=== PATIENT | female | born 2000 | race Caucasian/White ===

== ENCOUNTER 2020-05-02 16:04 | Emergency (ER) | payer OTHER, BC ==
[2020-05-02 16:30] VITALS: BP 141/70; PULSE 74; TEMP 97.4; BMI 21.0
[2020-05-02 21:18] LABS: THROAT:GRP A STREP ANTIGEN Negative (Negative)
== END 2020-05-02 20:06 | disposition home or self-care (01) ==
LOC: JER 16:04
DX: R07.0 Pain in throat (principal); M79.10 Myalgia, unspecified site; Z11.59 Encounter for screening for other viral diseases
CPT/HCPCS: 87070; 87077; 87880; 99283-25; C9803; U0003

== ENCOUNTER 2020-10-01 16:03 | Emergency (ER) | payer OTHER, BC ==
[2020-10-01 16:25] VITALS: BP 112/75; PULSE 82; TEMP 98.2; BMI 23.8
== END 2020-10-01 17:23 | disposition home or self-care (01) ==
LOC: JERFT 16:03
DX: M62.830 Muscle spasm of back (principal); S29.012A Strain of muscle and tendon of back wall of thorax, initial encounter
CPT/HCPCS: 72070-TC-FY; 73030-TC-LT-FY; 99284-25

== ENCOUNTER 2021-11-29 13:03 | Emergency (ER) | payer OTHER ==
[2021-11-29 13:49] VITALS: BP 130/63; PULSE 96; TEMP 98.7; BMI 23.8
== END 2021-11-29 14:10 | disposition home or self-care (01) ==
LOC: JER 13:03 → JERFT 13:03
DX: U07.1 COVID-19 (principal); H65.02 Acute serous otitis media, left ear; J02.9 Acute pharyngitis, unspecified
CPT/HCPCS: 99283-25; C9803-CS; U0003; U0005

== ENCOUNTER 2022-11-26 19:08 | Emergency (ER) | payer OTHER ==
[2022-11-26 19:24] VITALS: BP 113/58; PULSE 89; RESP 16; TEMP 97.6; BMI 28.3
[2022-11-26] MEDS ORDERED: KETOROLAC TROMETHAMINE 30 MG/1 ML VIAL IM ONE (20:36)
[2022-11-26] MEDS ORDERED: KETOROLAC TROMETHAMINE 30 MG/1 ML VIAL ONE (20:56)
[2022-11-26] MEDS ORDERED: AMOXICILLIN 500 MG CAPSULE (FP) PO ONE (21:44)
[2022-11-26] MEDS ORDERED: AMOXICILLIN 250 MG CAPSULE ONE (21:46)
== END 2022-11-26 21:52 | disposition home or self-care (01) ==
LOC: JERFT 19:08 → JER 19:08 → JERFT 21:52
PROC: 3E0233Z Introduction of Anti-inflammatory into Muscle, Percutaneous Approach (ICD-10-PCS; principal; 2022-11-26)
DX: J02.0 Streptococcal pharyngitis (principal); R07.0 Pain in throat; R13.10 Dysphagia, unspecified; R09.81 Nasal congestion
CPT/HCPCS: 87651; 99284-25

== ENCOUNTER 2023-08-20 11:57 | Emergency (ER) | payer OTHER ==
[2023-08-20 12:19] VITALS: BP 117/59; PULSE 99; RESP 18; TEMP 98.4; BMI 28.3
[2023-08-20 13:04] LABS: THROAT:GRP A STREP NOT DETECTED (NOTDETECTED)
== END 2023-08-20 15:40 | disposition home or self-care (01) ==
LOC: JERFT 11:57
DX: J02.9 Acute pharyngitis, unspecified (principal); R09.81 Nasal congestion; R05.9 Cough, unspecified; R50.9 Fever, unspecified; Z20.822 Contact with and (suspected) exposure to COVID-19
CPT/HCPCS: 0241U-QW; 87651; 99283-25